=== PATIENT | female | born 1940 | race Caucasian/White ===

== ENCOUNTER 2017-07-28 13:44 | Inpatient (IN) | payer OTHER, MEDICAID ==
[~2017-07-28] VITALS: Ht 157.5 cm; Wt 68.0 kg
[~2017-07-28 13:44] MED LIST: AMIT10TA6 PO; ATEN50TA PO; DEXL30CA3 PO; LEVO100T PO; LOSA50TA3 PO; NEU300 PO; OXCA150T5 PO
[2017-07-28 13:50] VITALS: BP_SYST 185
[2017-07-28] MEDS ORDERED: LEVO88TA2 PO (14:15)
[2017-07-28] MEDS ORDERED: LIP20 PO (14:15)
[2017-07-28] MEDS ORDERED: METO-442 PO (14:15)
[2017-07-28] MEDS ORDERED: NITSL SL (14:15)
[2017-07-28] MEDS ORDERED: PRO40 PO (14:15)
[2017-07-28] MEDS ORDERED: HYDR-1115 PO (14:15)
[2017-07-28] MEDS ORDERED: HYDR25TA4 PO (14:16)
[2017-07-28] MEDS ORDERED: ASPI-1063 PO (14:16)
[2017-07-28 14:20] LABS: BASOPHILS # (AUTO) 0.1 K/uL (0.0-0.2); BASOPHILS % (AUTO) 0.6 % (0.0-2.0); EOSINOPHILS # (AUTO) 0.2 K/uL (0.0-0.4); MONOCYTES # (AUTO) 0.6 K/uL (0.0-1.0); RED CELL DISTRIBUTION WIDTH 13.8 % (9.0-15.0)
[2017-07-28 14:23] LABS: ANION GAP 9 (5-15); CALCIUM 10.1 mg/dL (8.4-11.0); CHLORIDE 100 mmol/L (98-107); GLUCOSE 113 mg/dL (70-99); POTASSIUM 3.6 mmol/L (3.5-5.1); SODIUM SERUM 137 mmol/L (136-145); UREA NITROGEN, BLOOD 11 mg/dL (8-21)
[2017-07-28 14:24] LABS: EOSINOPHILS % (AUTO) 1.9 % (0.0-4.0); HEMOGLOBIN 13.3 g/dL (12.0-16.0); LYMPHOCYTES # (AUTO) 2.4 K/uL (1.0-5.5); MEAN CORPUSCULAR HEMOGLOBIN 27 pg (27-31); MEAN CORPUSCULAR HGB CONC 32 % (32-36); MEAN CORPUSCULAR VOLUME 84 fL (79.0-98.0); MONOCYTES % (AUTO) 6.1 % (1.7-9.3); NEUTROPHILS % (AUTO) 68.4 % (40.0-70.0); WHITE BLOOD COUNT (AUTO) 10.3 K/uL (4.8-10.8)
[2017-07-28 14:27] LABS: PROTHROMBIN TIME 10.4 SECS (9.5-12.5)
[2017-07-28 14:28] LABS: ALANINE AMINOTRANSFERASE 23 U/L (12-78); ALBUMIN 3.8 g/dL (3.4-4.8); ASPARTATE AMINOTRANSFERASE 18 U/L (10-37); TOTAL BILIRUBIN 0.4 mg/dL (0.0-1.0)
[2017-07-28 14:50] LABS: PLATELET COUNT (AUTO) 244 K/uL (130-430)
[2017-07-28 15:53] LABS: BILIRUBIN,URINE NEGATIVE (NEGATIVE); BLOOD, URINE NEGATIVE (NEGATIVE); CLARITY/URINE CLEAR (CLEAR); COLOR,URINE YELLOW (YELLOW); GLUCOSE,URINE NEGATIVE (NEGATIVE); KETONES,URINE NEGATIVE (NEGATIVE); LEUKOCYTE ESTERASE ,URINE TRACE (NEGATIVE); NITRITE, URINE NEGATIVE (NEGATIVE); PROTEIN URINE NEGATIVE (NEGATIVE); UROBILINOGEN,URINE 0.2 (0.2-1.0)
[2017-07-28 16:10] LABS: BACTERIA,URINE FEW /HPF (None Seen); RBC,URINE 0-3 /HPF (0-3)
[2017-07-28 17:45] VITALS: BP_SYST 161
[2017-07-28] MEDS ORDERED: NITROGLYCERIN 0.4 MG TAB.SUBL SL SCH (18:15)
[2017-07-28 18:29] VITALS: BP_SYST 133
[2017-07-28 20:00] VITALS: BP_SYST 113
[2017-07-28] MEDS: METOPROLOL TARTRATE 50 MG TABLET PO SCH (20:08)
[2017-07-28] MEDS ORDERED: ZOLPIDEM TARTRATE 5 MG TABLET PO ONE (22:15)
[2017-07-29] VITALS: BP_SYST 115
[2017-07-29 03:50] LABS: ANION GAP 7 (5-15); CHLORIDE 105 mmol/L (98-107); CREATININE 0.75 mg/dL (0.55-1.30); GLUCOSE 94 mg/dL (70-99); POTASSIUM 3.5 mmol/L (3.5-5.1); SODIUM SERUM 140 mmol/L (136-145); UREA NITROGEN, BLOOD 11 mg/dL (8-21)
[2017-07-29 04:00] VITALS: BP_SYST 135
[2017-07-29 04:06] LABS: ALANINE AMINOTRANSFERASE 21 U/L (12-78); ALBUMIN 3.3 g/dL (3.4-4.8); ASPARTATE AMINOTRANSFERASE 16 U/L (10-37); PHOSPHORUS 3.9 mg/dL (2.7-4.5); THYROID STIMULATING HORMONE 2.38 uIu/mL (0.36-3.74); TOTAL BILIRUBIN 0.5 mg/dL (0.0-1.0)
[2017-07-29] MEDS: LEVOTHYROXINE SODIUM 0.088 MG TABLET PO SCH (06:05)
[2017-07-29 06:18] LABS: BASOPHILS # (AUTO) 0.1 K/uL (0.0-0.2); BASOPHILS % (AUTO) 1.1 % (0.0-2.0); EOSINOPHILS # (AUTO) 0.3 K/uL (0.0-0.4); EOSINOPHILS % (AUTO) 3.7 % (0.0-4.0); HEMOGLOBIN 12.5 g/dL (12.0-16.0); LYMPHOCYTES # (AUTO) 2.4 K/uL (1.0-5.5); LYMPHOCYTES % (AUTO) 32.3 % (20.5-51.5); MEAN CORPUSCULAR HEMOGLOBIN 28 pg (27-31); MEAN CORPUSCULAR HGB CONC 33 % (32-36); MEAN CORPUSCULAR VOLUME 84 fL (79.0-98.0); MONOCYTES # (AUTO) 0.4 K/uL (0.0-1.0); NEUTROPHILS # (AUTO) 4.3 K/uL (1.8-7.7); NEUTROPHILS % (AUTO) 56.9 % (40.0-70.0); PLATELET COUNT (AUTO) 217 K/uL (130-430); RED BLOOD CELL COUNT(AUTO) 4.52 MIL/uL (4.2-6.2); RED CELL DISTRIBUTION WIDTH 14.1 % (9.0-15.0); WHITE BLOOD COUNT (AUTO) 7.5 K/uL (4.8-10.8)
[2017-07-29 08:00] VITALS: BP_SYST 132
[2017-07-29] MEDS: HYDROCHLOROTHIAZIDE 25 MG TABLET (HCTZ) PO SCH (09:36)
[2017-07-29] MEDS: ASPIRIN 81 MG TABLET(ECOTRIN) PO SCH (09:36)
[2017-07-29] MEDS: PANTOPRAZOLE SODIUM 40 MG TAB PO SCH (09:36)
[2017-07-29] MEDS: ATORVASTATIN 20 MG TABLET PO SCH (09:36)
[2017-07-29] MEDS: METOPROLOL TARTRATE 50 MG TABLET PO SCH ×2 (09:37→21:30)
[2017-07-29] MEDS: ACETAMINOPHEN 325 MG TABLET PO PRN ×2 (11:17→17:22)
[2017-07-29 11:36] VITALS: BP_SYST 132
[2017-07-29 15:29] VITALS: BP_SYST 116
[2017-07-29 20:00] VITALS: BP_SYST 130
[2017-07-29] MEDS ORDERED: TEMAZEPAM 15 MG CAPSULE PO ONE (22:15)
[2017-07-30 01:05] VITALS: BP_SYST 117
[2017-07-30 05:29] VITALS: BP_SYST 110
[2017-07-30] MEDS: LEVOTHYROXINE SODIUM 0.088 MG TABLET PO SCH (07:00)
[2017-07-30 08:57] VITALS: BP_SYST 138
[2017-07-30] MEDS ORDERED: REGADENOSON 0.4 MG/5 ML SYRINGE IVP ONE (09:00)
[2017-07-30] MEDS: METOPROLOL TARTRATE 50 MG TABLET PO SCH (11:53)
[2017-07-30] MEDS: HYDROCHLOROTHIAZIDE 25 MG TABLET (HCTZ) PO SCH (11:54)
[2017-07-30] MEDS: PANTOPRAZOLE SODIUM 40 MG TAB PO SCH (11:54)
[2017-07-30] MEDS: ASPIRIN 81 MG TABLET(ECOTRIN) PO SCH (11:54)
[2017-07-30] MEDS: ATORVASTATIN 20 MG TABLET PO SCH (12:00)
[2017-07-30 12:23] VITALS: BP_SYST 114
[2017-07-30 13:30] VITALS: BP_SYST 114
[2017-07-30 13:39] VITALS: BP_SYST 114
== END 2017-07-30 14:04 | disposition home or self-care (01) | DRG 313 ==
LOC: SED 13:44 → STU 17:19
PROVIDERS: ADMIT Internal Medicine Hospice and Palliative Medicine; ATTEND Internal Medicine Hospice and Palliative Medicine
DX: R07.89 Other chest pain (principal); E03.9 Hypothyroidism, unspecified; E78.5 Hyperlipidemia, unspecified; I10 Essential (primary) hypertension; K21.9 Gastro-esophageal reflux disease without esophagitis; Z88.6 Allergy status to analgesic agent; Z88.8 Allergy status to other drugs, medicaments and biological substances; Z79.82 Long term (current) use of aspirin; Z79.899 Other long term (current) drug therapy; Z90.49 Acquired absence of other specified parts of digestive tract; Z90.710 Acquired absence of both cervix and uterus
CPT/HCPCS: 36415; 71010; 80053; 81000-TC; 83690-TC; 83735-TC; 83880; 84100-TC; 84443-TC; 84484; 85025; 85610-TC; 85730-TC; 93005; 93017; 93306; 99285; A9500; J2785

== ENCOUNTER 2018-01-15 09:33 | Inpatient (IN) | payer OTHER, MEDICAID ==
[~2018-01-15] VITALS: Ht 160 cm; Wt 68.9 kg
[2018-01-15 09:33] VITALS: BP_SYST 170
[~2018-01-15 09:33] MED LIST changes: -AMIT10TA6 PO; +ASPI-1063 PO; -ATEN50TA PO; -DEXL30CA3 PO; +HYDR25TA4 PO; -LEVO100T PO; +LEVO88TA2 PO; +LIP20 PO; -LOSA50TA3 PO; +METO-442 PO; -NEU300 PO; +NITSL SL; -OXCA150T5 PO; +PRO40 PO
[2018-01-15] MEDS ORDERED: NS 500 ML IV ONE (10:00)
[2018-01-15 10:09] LABS: BASOPHILS # (AUTO) 0.1 K/uL (0.0-0.2); EOSINOPHILS # (AUTO) 0.2 K/uL (0.0-0.4); EOSINOPHILS % (AUTO) 3.7 % (0.0-4.0); HEMATOCRIT 39.2 % (36-48); LYMPHOCYTES # (AUTO) 0.8 K/uL (1.0-5.5); LYMPHOCYTES % (AUTO) 12.3 % (20.5-51.5); MEAN CORPUSCULAR HEMOGLOBIN 27 pg (27-31); MEAN CORPUSCULAR HGB CONC 33 % (32-36); MEAN CORPUSCULAR VOLUME 82 fL (79.0-98.0); MONOCYTES # (AUTO) 0.5 K/uL (0.0-1.0); NEUTROPHILS # (AUTO) 5.1 K/uL (1.8-7.7); PLATELET COUNT (AUTO) 231 K/uL (130-430); RED BLOOD CELL COUNT(AUTO) 4.77 MIL/uL (4.2-6.2); RED CELL DISTRIBUTION WIDTH 13.7 % (9.0-15.0); WHITE BLOOD COUNT (AUTO) 6.7 K/uL (4.8-10.8)
[2018-01-15 10:25] LABS: BILIRUBIN,URINE NEGATIVE (NEGATIVE); CLARITY/URINE CLEAR (CLEAR); COLOR,URINE YELLOW (YELLOW); GLUCOSE,URINE NEGATIVE (NEGATIVE); KETONES,URINE NEGATIVE (NEGATIVE); LEUKOCYTE ESTERASE ,URINE TRACE (NEGATIVE); NITRITE, URINE NEGATIVE (NEGATIVE); PH,URINE 5.5 (5.0-8.0); PROTEIN URINE NEGATIVE (NEGATIVE); UROBILINOGEN,URINE 0.2 (0.2-1.0)
[2018-01-15 10:27] LABS: BLOOD, URINE TRACE (NEGATIVE)
[2018-01-15 10:32] LABS: ANION GAP 10 (5-15); CALCIUM 9.8 mg/dL (8.4-11.0); CHLORIDE 102 mmol/L (98-107); CREATININE 0.85 mg/dL (0.55-1.30); GLUCOSE 111 mg/dL (70-99); POTASSIUM 3.8 mmol/L (3.5-5.1); SODIUM SERUM 140 mmol/L (136-145); UREA NITROGEN, BLOOD 11 mg/dL (8-21)
[2018-01-15 10:34] LABS: BACTERIA,URINE RARE /HPF (None Seen); MUCUS,URINE None Seen /LPF (None Seen); RBC,URINE 0-3 /HPF (0-3); WBC,URINE 0-3 /HPF (0-3)
[2018-01-15 10:36] LABS: ALANINE AMINOTRANSFERASE 26 U/L (12-78); ALBUMIN 3.5 g/dL (3.4-4.8); ASPARTATE AMINOTRANSFERASE 26 U/L (10-37); TOTAL BILIRUBIN 0.3 mg/dL (0.0-1.0)
[2018-01-15 11:44] VITALS: BP_SYST 168
[2018-01-15] MEDS ORDERED: amLODIPine BESYLATE 5 MG TABLET PO ONE (15:15)
[2018-01-15 16:00] VITALS: BP_SYST 134
[2018-01-15] MEDS ORDERED: PANTOPRAZOLE SODIUM 40 MG TAB PO ONE (18:15)
[2018-01-15 20:51] VITALS: BP_SYST 143
[2018-01-15] MEDS: METOPROLOL TARTRATE 25 MG TABLET PO SCH (21:10)
[2018-01-15] MEDS ORDERED: MORPHINE 4 MG/ML INJ. SYRINGE IVP PRN (21:30)
[2018-01-15] MEDS ORDERED: ACETAMINOPHEN 325 MG TABLET PO PRN (21:30)
[2018-01-15] MEDS ORDERED: ONDANSETRON HCL 4 MG/2 ML VIAL IVP PRN (21:30)
[2018-01-15] MEDS ORDERED: ZOLPIDEM TARTRATE 5 MG TABLET PO PRN (21:30)
[2018-01-15] MEDS ORDERED: MORPHINE 2 MG/ML INJ. SYRINGE IVP PRN (21:30)
[2018-01-16 01:24] VITALS: BP_SYST 146
[2018-01-16] MEDS ORDERED: LEVOTHYROXINE SODIUM 0.088 MG TABLET PO SCH (07:00)
[2018-01-16 08:00] VITALS: BP_SYST 139
[2018-01-16] MEDS: METOPROLOL TARTRATE 25 MG TABLET PO SCH (08:10)
[2018-01-16] MEDS ORDERED: METOPROLOL TARTRATE 50 MG TABLET PO SCH (09:00)
[2018-01-16] MEDS ORDERED: PANTOPRAZOLE SODIUM 40 MG TAB PO SCH ×2 (09:00)
[2018-01-16] MEDS ORDERED: amLODIPine BESYLATE 5 MG TABLET PO SCH (09:00)
[2018-01-16] MEDS ORDERED: ASPIRIN 81 MG TABLET(ECOTRIN) PO SCH (09:00)
[2018-01-16] MEDS ORDERED: MORPHINE 4 MG/ML INJ. SYRINGE IVP PRN (09:32)
[2018-01-16 11:01] VITALS: BP_SYST 135
== END 2018-01-16 11:55 | disposition home or self-care (01) | DRG 313 ==
LOC: SED 09:33 → STU 11:26 → SMU 01-16 10:21
PROVIDERS: ADMIT Internal Medicine Hospice and Palliative Medicine; ATTEND Internal Medicine Hospice and Palliative Medicine
DX: R07.89 Other chest pain (principal); E03.9 Hypothyroidism, unspecified; K44.9 Diaphragmatic hernia without obstruction or gangrene; I10 Essential (primary) hypertension; E78.5 Hyperlipidemia, unspecified; M19.90 Unspecified osteoarthritis, unspecified site; K21.9 Gastro-esophageal reflux disease without esophagitis; Z79.82 Long term (current) use of aspirin; Z88.6 Allergy status to analgesic agent; Z88.8 Allergy status to other drugs, medicaments and biological substances; Z79.899 Other long term (current) drug therapy; Z90.710 Acquired absence of both cervix and uterus; Z90.49 Acquired absence of other specified parts of digestive tract; Z87.891 Personal history of nicotine dependence
CPT/HCPCS: 36415; 71045; 80053; 81000-TC; 83880; 84484; 85025; 93005; 96360; 99285

== ENCOUNTER 2018-02-12 18:20 | Emergency (ER) | payer OTHER, MEDICAID ==
[~2018-02-12] VITALS: Ht 160 cm; Wt 68.9 kg
[~2018-02-12 18:20] MED LIST changes: -HYDR25TA4 PO; -LIP20 PO
[2018-02-12 18:31] VITALS: BP_SYST 176
[2018-02-12 19:48] LABS: BASOPHILS # (AUTO) 0.1 K/uL (0.0-0.2); BASOPHILS % (AUTO) 0.9 % (0.0-2.0); EOSINOPHILS # (AUTO) 0.3 K/uL (0.0-0.4); EOSINOPHILS % (AUTO) 3.6 % (0.0-4.0); HEMATOCRIT 40.6 % (36-48); HEMOGLOBIN 13.4 g/dL (12.0-16.0); LYMPHOCYTES # (AUTO) 2.3 K/uL (1.0-5.5); LYMPHOCYTES % (AUTO) 30.8 % (20.5-51.5); MEAN CORPUSCULAR HEMOGLOBIN 27 pg (27-31); MEAN CORPUSCULAR HGB CONC 33 % (32-36); MEAN CORPUSCULAR VOLUME 82 fL (79.0-98.0); MONOCYTES # (AUTO) 0.4 K/uL (0.0-1.0); NEUTROPHILS # (AUTO) 4.3 K/uL (1.8-7.7); NEUTROPHILS % (AUTO) 58.7 % (40.0-70.0); PLATELET COUNT (AUTO) 289 K/uL (130-430); RED BLOOD CELL COUNT(AUTO) 4.95 MIL/uL (4.2-6.2); RED CELL DISTRIBUTION WIDTH 13.5 % (9.0-15.0); WHITE BLOOD COUNT (AUTO) 7.4 K/uL (4.8-10.8)
[2018-02-12 19:54] LABS: SODIUM SERUM 138 mmol/L (136-145)
[2018-02-12 19:55] LABS: ANION GAP 6 (5-15); CHLORIDE 103 mmol/L (98-107); CREATININE 0.95 mg/dL (0.55-1.30); GLUCOSE 104 mg/dL (70-99); PROTHROMBIN TIME 9.9 SECS (9.5-12.5); UREA NITROGEN, BLOOD 13 mg/dL (8-21)
[2018-02-12 19:57] LABS: ALANINE AMINOTRANSFERASE 35 U/L (12-78); ALBUMIN 3.6 g/dL (3.4-4.8); ASPARTATE AMINOTRANSFERASE 24 U/L (10-37); TOTAL BILIRUBIN 0.3 mg/dL (0.0-1.0)
[2018-02-12 20:19] VITALS: BP_SYST 138
== END 2018-02-12 20:19 | disposition home or self-care (01) ==
LOC: SED 18:20
DX: I16.0 Hypertensive urgency (principal); I10 Essential (primary) hypertension; K21.9 Gastro-esophageal reflux disease without esophagitis; E03.9 Hypothyroidism, unspecified; Z88.5 Allergy status to narcotic agent; Z88.6 Allergy status to analgesic agent; Z79.899 Other long term (current) drug therapy
CPT/HCPCS: 36415; 70450-TC; 71045; 80053; 82550-TC; 84484; 85025; 85610-TC; 85730-TC; 93005; 99285

== ENCOUNTER 2019-03-07 15:11 | Inpatient (IN) | payer MEDICAID, OTHER ==
[~2019-03-07] VITALS: Ht 157.5 cm; Wt 64.0 kg
[~2019-03-07 15:11] MED LIST changes: -ASPI-1063 PO; +ASPI-1153 PO
--- NOTE | 2019-03-07 15:12 | NUR ---
Placed in room 02 . Placed on monitoring engineer, blood pressure machine and pulse oximeter. To gown for exam. Side rails up.
--- NOTE | 2019-03-07 15:15 | NUR ---
Dr Talley at bedside examining patient
--- NOTE | 2019-03-07 15:15 | NUR ---
Patient to ER via triage for evaluation of numbness to left hand/face and elevated BP. BP from triage 212/88. Patient is awake, alert and oriented in no acute distress, respirations even and unlabored, skin warm and dry to touch. Patient on child monitor which shows sinus rhythm without ectopy, patient able to move all extremities, no weakness noted. No drift noted. Dr Talley at bedside to evaluate patient, will continue to observe and assess.
[2019-03-07 15:17] VITALS: BP_SYST 212
--- NOTE | 2019-03-07 15:20 | NUR ---
Pt off the unit for CT
--- NOTE | 2019-03-07 15:30 | NUR ---
Patient returned from CT scan in stable condition. Patient up to bathroom with slow, steady gait.
[2019-03-07 15:59] LABS: BASOPHILS # (AUTO) 0.1 K/uL (0.0-0.2); BASOPHILS % (AUTO) 0.9 % (0.0-2.0); EOSINOPHILS # (AUTO) 0.4 K/uL (0.0-0.4); EOSINOPHILS % (AUTO) 5.5 % (0.0-4.0); HEMATOCRIT 40.5 % (36-48); HEMOGLOBIN 13.4 g/dL (12.0-16.0); LYMPHOCYTES % (AUTO) 29.2 % (20.5-51.5); MEAN CORPUSCULAR HEMOGLOBIN 28 pg (27-31); MEAN CORPUSCULAR HGB CONC 33 % (32-36); MEAN CORPUSCULAR VOLUME 86 fL (79.0-98.0); MONOCYTES # (AUTO) 0.4 K/uL (0.0-1.0); MONOCYTES % (AUTO) 5.9 % (1.7-9.3); NEUTROPHILS % (AUTO) 58.5 % (40.0-70.0); PLATELET COUNT (AUTO) 275 K/uL (130-430); RED BLOOD CELL COUNT(AUTO) 4.72 MIL/uL (4.2-6.2); RED CELL DISTRIBUTION WIDTH 14.9 % (9.0-15.0); WHITE BLOOD COUNT (AUTO) 6.8 K/uL (4.8-10.8)
[2019-03-07 16:04] LABS: ANION GAP 10 (5-15); CALCIUM 9.4 mg/dL (8.4-11.0); CHLORIDE 106 mmol/L (98-107); CREATININE 0.87 mg/dL (0.55-1.30); GLUCOSE 109 mg/dL (70-99); POTASSIUM 3.7 mmol/L (3.5-5.1); SODIUM SERUM 143 mmol/L (136-145); UREA NITROGEN, BLOOD 12 mg/dL (8-21)
[2019-03-07 16:11] LABS: ALANINE AMINOTRANSFERASE 23 U/L (12-78); ALBUMIN 3.3 g/dL (3.4-4.8); ASPARTATE AMINOTRANSFERASE 15 U/L (10-37); TOTAL BILIRUBIN 0.2 mg/dL (0.0-1.0)
--- NOTE | 2019-03-07 16:30 | NUR ---
Patient resting quietly in no acute distress, vital signs stable, respirations even and unlabored, skin warm and dry to touch. Able to ambulate without difficulty with slow, steady gait. No neuro deficits noted. Awaiting dispo, will continue to observe and assess.
[2019-03-07] MEDS ORDERED: LOSA25TA3 PO (16:55)
--- NOTE | 2019-03-07 16:55 | NUR ---
Andres kang in [facility] - 03/07/19 at 1656 by [email or web address] Medication reconciliation completed with information provided by patient. Any prior medication reconciliation on file was reviewed and corrected.
--- NOTE | 2019-03-07 16:55 | NUR ---
Medication reconciliation completed with information provided by patient . Any prior medication reconciliation on file was reviewed and corrected.
[2019-03-07] MEDS ORDERED: ASPIRIN 81 MG TAB.CHEW PO ONE (17:00)
[2019-03-07] MEDS ORDERED: NITROGLYCERIN 0.4 MG TAB.SUBL SL PRN (17:15)
[2019-03-07] MEDS ORDERED: MORPHINE 2 MG/ML INJ. SYRINGE IVP PRN (17:15)
--- NOTE | 2019-03-07 17:15 | NUR ---
Patient will be admitted to care of Dr Hawley. Admitted to tele unit. Will go to room 101-B. Belongings list completed. Summary report printed. Report will be given at bedside.
--- NOTE | 2019-03-07 17:23 | NUR ---
Transfer to tele room 101-B via ACLS protocol. Licensed nurse present. IV present no signs or symptoms of infiltration.
[2019-03-07 17:52] LABS: BILIRUBIN,URINE NEGATIVE (NEGATIVE); BLOOD, URINE NEGATIVE (NEGATIVE); CLARITY/URINE CLEAR (CLEAR); GLUCOSE,URINE NEGATIVE (NEGATIVE); KETONES,URINE NEGATIVE (NEGATIVE); LEUKOCYTE ESTERASE ,URINE NEGATIVE (NEGATIVE); NITRITE, URINE NEGATIVE (NEGATIVE); PROTEIN URINE NEGATIVE (NEGATIVE); UROBILINOGEN,URINE 0.2 (0.2-1.0)
--- NOTE | 2019-03-07 17:58 | NUR ---
Admission Note Received patient from ER with diagnosis of Chest pain. Initial Plan of Care discussed-patient verbalized understanding. Family at bedside. Oriented to room, call light, pain management and safety.
[2019-03-07 18:01] LABS: COLOR,URINE STRAW (YELLOW)
[2019-03-07 18:18] VITALS: BP_SYST 171
--- NOTE | 2019-03-07 18:19 | NUR ---
patient in bed. aaox 4. lungs bilaterally clear. abdomen soft and non distended. has iv access on the left ac #20. dry/patent. verbalized very hungry. has dinner tray on the table. assists on adls. placed on alarm security or surveillance monitor SR 80"s. no ectopy noted. no chest pain nor acute distress noted. bed in low position. call lights within reach. instructed to call for assistance.
--- NOTE | 2019-03-07 18:57 | NUR ---
patient stable but complained 3-4 chest pressure, but offered to have nitroglycerin sublingual verbalized not yet, perhaps later and offered to have morphine iv but refused perhaps later in the nite before I slept. wants to call first the children. call lights within reach. bed in low position.
--- NOTE | 2019-03-07 18:58 | NUR ---
CONSULTATION PAGED/CALLED Reason for Consultation: CHEST PAIN Person Who was Notified: L[place]IS Consulting Physician: DR. ANDERSON Waffle Machine Operator Specialty: CARDIO Ordering Physician: YULIA PELAEZ
--- NOTE | 2019-03-07 19:00 | NUR ---
latest bp is 156/92. patient stable.
--- NOTE | 2019-03-07 19:23 | NUR ---
endorsed to incoming nurse Jefe PEREZ.
[2019-03-07 19:45] VITALS: BP_SYST 139
--- NOTE | 2019-03-07 19:45 | NUR ---
INITIAL NOTE AT INITIAL ASSESSMENT, PATIENT IS RESTING IN BED, STABLE, NO SIGNS OF RESPIRATORY DISTRESS. PATIENT VERBALIZES NO PAIN. PLAN OF CARE FOR THE EVENING IS COMMUNICATED WITH THE PATIENT. CALL LIGHT- TEACH BACK IS SUCCESSFUL. BED IS LOCKED, ALARMED, AND AT THE LOWEST LEVEL. FALL, AND SAFETY PRECAUTIONS WILL BE IN PLACE THROUGHOUT THE SHIFT.
[2019-03-07] MEDS ORDERED: METOPROLOL TARTRATE 25 MG TABLET PO SCH (21:00)
[2019-03-07] MEDS: METOPROLOL TARTRATE 50 MG TABLET PO SCH (21:15)
[2019-03-07] MEDS: LOSARTAN POTASSIUM 25 MG TABLET PO SCH (21:15)
--- NOTE | 2019-03-07 21:45 | NUR ---
NOTE PRN MEDICATION FOR PATIENT'S PAIN COMPLAIN HAS BEEN GIVEN AT THIS TIME. PATIENT IS RESTING IN BED, STABLE, NO SIGNS OF RESPIRATORY DISTRESS. CALL LIGHT IS WITHIN REACH. BED IS LOCKED, ALARMED, AND AT THE LOWEST LEVEL.
[2019-03-07 23:10] VITALS: BP_SYST 139
--- NOTE | 2019-03-07 23:45 | NUR ---
NOTE PATIENT VERBALIZES PRN MEDICATION GIVEN FOR HER PAIN WAS EFFECTIVE. PATIENT ASSISTED TO THE RESTROOM WITH ONLY STAND BY ASSIST AT THIS TIME, SHE IS VISUALIZED WITH STEADY GAIT. PATIENT IS STABLE, NO SIGNS OF RESPIRATORY DISTRESS. CALL LIGHT IS WITHIN REACH. BED IS LOCKED, ALARMED, AND AT THE LOWEST LEVEL.
--- NOTE | 2019-03-08 01:45 | NUR ---
NOTE PATIENT IS SLEEPING, STABLE, NO SIGNS OF RESPIRATORY DISTRESS. CALL LIGHT IS WITHIN REACH. BED IS LOCKED, ALARMED, AND AT THE LOWEST LEVEL.
--- NOTE | 2019-03-08 03:45 | NUR ---
NOTE PATIENT IS SLEEPING, STABLE, NO SIGNS OF RESPIRATORY DISTRESS. CALL LIGHT IS WITHIN REACH. BED IS LOCKED, ALARMED, AND AT THE LOWEST LEVEL.
--- NOTE | 2019-03-08 05:30 | NUR ---
NOTE PATIENT IS SLEEPING, STABLE, NO SIGNS OF RESPIRATORY DISTRESS. CALL LIGHT IS WITHIN REACH. BED IS LOCKED, ALARMED, AND AT THE LOWEST LEVEL.
[2019-03-08] MEDS: LEVOTHYROXINE SODIUM 0.088 MG TABLET PO SCH (06:28)
--- NOTE | 2019-03-08 06:43 | NUR ---
CLOSING NOTE AT THIS TIME, PATIENT IS RESTING IN BED, STABLE, NO SIGNS OF RESPIRATORY DISTRESS. PATIENT SLEPT WELL THROUGHOUT THE SHIFT. BED IS LOCKED, ALARMED, AND THE LOWEST LEVEL. FALL, AND SAFETY PRECAUTIONS HAVE BEEN TAKEN THROUGHOUT THE SHIFT. WILL CONTINUE TO MONITOR UNTIL SHIFT REPORT IS GIVEN AT BEDSIDE TO AM NURSE.
[2019-03-08 07:12] LABS: BASOPHILS # (AUTO) 0.1 K/uL (0.0-0.2); EOSINOPHILS # (AUTO) 0.4 K/uL (0.0-0.4); EOSINOPHILS % (AUTO) 6.6 % (0.0-4.0); HEMATOCRIT 38.1 % (36-48); HEMOGLOBIN 12.4 g/dL (12.0-16.0); LYMPHOCYTES # (AUTO) 2.2 K/uL (1.0-5.5); MEAN CORPUSCULAR HEMOGLOBIN 28 pg (27-31); MEAN CORPUSCULAR HGB CONC 33 % (32-36); MEAN CORPUSCULAR VOLUME 85 fL (79.0-98.0); MONOCYTES # (AUTO) 0.4 K/uL (0.0-1.0); MONOCYTES % (AUTO) 6.7 % (1.7-9.3); NEUTROPHILS # (AUTO) 3.2 K/uL (1.8-7.7); NEUTROPHILS % (AUTO) 50.7 % (40.0-70.0); PLATELET COUNT (AUTO) 248 K/uL (130-430); RED BLOOD CELL COUNT(AUTO) 4.48 MIL/uL (4.2-6.2); RED CELL DISTRIBUTION WIDTH 14.9 % (9.0-15.0); WHITE BLOOD COUNT (AUTO) 6.3 K/uL (4.8-10.8)
[2019-03-08 07:21] LABS: ANION GAP 8 (5-15); CALCIUM 8.7 mg/dL (8.4-11.0); CHLORIDE 108 mmol/L (98-107); CREATININE 0.72 mg/dL (0.55-1.30); GLUCOSE 82 mg/dL (70-99); POTASSIUM 3.9 mmol/L (3.5-5.1); SODIUM SERUM 142 mmol/L (136-145); UREA NITROGEN, BLOOD 13 mg/dL (8-21)
[2019-03-08 07:25] LABS: ALANINE AMINOTRANSFERASE 17 U/L (12-78); ALBUMIN 2.8 g/dL (3.4-4.8); ASPARTATE AMINOTRANSFERASE 12 U/L (10-37); TOTAL BILIRUBIN 0.3 mg/dL (0.0-1.0)
[2019-03-08 08:00] VITALS: BP_SYST 134
--- NOTE | 2019-03-08 08:00 | NUR ---
initial notes rec patient awake laert and eating breakfast. denies chest pain. resp easy and unlabored. no noted. ambulated to the br and mook well. resp easy and unlabored. no sob noted. bed to the lowest position and side rails up and locked. call light within reached and knows when to call for assists. bed alarm is activated.
[2019-03-08] MEDS ORDERED: ASPIRIN 81 MG TAB.CHEW PO SCH (09:00)
[2019-03-08] MEDS: ENOXAPARIN SODIUM 40 MG/0.4 ML SYRINGE SUBCUT SCH (09:13)
[2019-03-08] MEDS: ASPIRIN 81 MG TABLET(ECOTRIN) PO SCH (09:13)
[2019-03-08] MEDS: LOSARTAN POTASSIUM 25 MG TABLET PO SCH ×2 (09:14→20:41)
[2019-03-08] MEDS: METOPROLOL TARTRATE 50 MG TABLET PO SCH ×2 (09:14→20:40)
--- NOTE | 2019-03-08 10:00 | NUR ---
rounds due meds were given and mook well. assisted to the br and mook well. nos ob noted.. call light within reached.
[2019-03-08] MEDS ORDERED: ATORVASTATIN 20 MG TABLET PO ONE (10:45)
[2019-03-08 11:10] VITALS: BP_SYST 109
--- NOTE | 2019-03-08 12:00 | NUR ---
rounds seen by dr chance and with order for stress test in am 0930. instructed to be npo post midnight and no beta blockers as per solar sales associate.
--- NOTE | 2019-03-08 14:00 | NUR ---
rounds sleep or watching tv at intervals. denies chest pain.
[2019-03-08 15:19] VITALS: BP_SYST 140
[2019-03-08 19:20] VITALS: BP_SYST 132
--- NOTE | 2019-03-08 19:20 | NUR ---
OPENING NOTE RECEIVED ENDORSEMENT REPORT FROM DAY NURSE JAYCE AT BEDSIDE. PT IS AOX4. NO SOB NOTED. NO DISTRESS NOTED. CHEST RISE EVEN AND UNLABORED. NO S/S OF PAIN NOTED. PT DENIES PAIN AT THIS TIME. IV CLEAN, DRY, PATENT AND INTACT. ORIENTED PT TO HOSPITAL ROOM AND HOW TO USE ROOM PHONE AND CALL LIGHT TO CALL FOR ASSISTANCE. PT VERBALIZED UNDERSTANDING. SAFETY MEASURES IN PLACE. CALL LIGHT/ROOM PHONE WITHIN REACH, BED ALARM ON, BED WHEELS LOCKED, BED IN LOWEST POSITION, BED WHEELS LOCKED, SIDE RAILS UP X3, BEDSIDE TABLE WITHIN REACH. NO OTHER NEEDS AT THIS TIME. WILL CONTINUE TO MONITOR PT AND CONTINUE PT'S POC.
--- NOTE | 2019-03-08 20:40 | NUR ---
RN ROUNDS PT RESTING IN BED. NO SOB NOTED. NO DISTRESS NOTED. CHEST RISE EVEN AND UNLABORED. NO S/S OF PAIN NOTED. PT DENIES PAIN AT THIS TIME. VITAL SIGNS WNL. SCHEDULED MEDICATIONS ADMINISTERED ORDERED. NO OTHER NEEDS AT THIS TIME. SAFETY MEASURES IN PLACE. WILL CONTINUE TO MONITOR PT AND CONTINUE PT'S POC.
[2019-03-08] MEDS: FAMOTIDINE 20 MG TABLET PO SCH (20:41)
--- NOTE | 2019-03-08 21:05 | NUR ---
PAGED I PAGED DR. 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 YULIA HERNANDEZ I SPOKE WITH FLORENCE ENVIRONMENTAL ENGINEER SCIENTIST
[2019-03-08] MEDS ORDERED: ACETAMINOPHEN 325 MG TABLET PO PRN (21:30)
--- NOTE | 2019-03-08 22:45 | NUR ---
RN ROUNDS PT RESTING IN BED WITH EYES CLOSED. NO SOB NOTED. NO DISTRESS NOTED. CHEST RISE EVEN AND UNLABORED. NO S/S OF PAIN NOTED. NO OTHER NEEDS AT THIS TIME. SAFETY MEASURES IN PLACE. WILL CONTINUE TO MONITOR PT AND CONTINUE PT'S POC.
[2019-03-09] VITALS: BP_SYST 125
--- NOTE | 2019-03-09 04:25 | NUR ---
RN ROUNDS PT RESTING IN BED. NO SOB NOTED. NO DISTRESS NOTED. CHEST RISE EVEN AND UNLABORED. NO S/S OF PAIN NOTED. PT DENIES PAIN AT THIS TIME. VITAL SIGNS WNL. SAFETY MEASURES IN PLACE. NO OTHER NEEDS AT THIS TIME. WILL CONTINUE TO MONITOR PT AND CONTINUE PT'S POC.
--- NOTE | 2019-03-09 06:37 | NUR ---
CLOSING NOTE PT RESTING IN BED WITH EYES CLOSED. NO SOB NOTED. NO DISTRESS NOTED. CHEST RISE EVEN AND UNLABORED. NO S/S OF PAIN NOTED. PT DENIES PAIN AT THIS TIME. IV CLEAN, DRY, PATENT AND INTACT. NO COMPLAINTS OF PAIN THROUGHOUT SHIFT. ALL NEEDS MET THROUGHOUT SHIFT. ALL SCHEDULED MEDICATIONS ADMINISTERED ORDERED. SAFETY MEASURES IN PLACE THROUGHOUT SHIFT. NO OTHER NEEDS AT THIS TIME. WILL ENDORSE PT REPORT TO DAY NURSE.
--- NOTE | 2019-03-09 06:50 | NUR ---
[facility] CALLED JASMEET CALLED TO NOTIFY SHE WILL BE ARRIVING BETWEEN [phone] TO COME AND EXPLAIN EVERYTHING TO PT. PT TO CONTINUE TO BE NPO
[2019-03-09] MEDS: LEVOTHYROXINE SODIUM 0.088 MG TABLET PO SCH (06:53)
[2019-03-09 07:44] VITALS: BP_SYST 143
--- NOTE | 2019-03-09 07:45 | NUR ---
INITIAL NOTE RECEIVED PT IN BED, NO S/S OF DISTRESS OR SOB NOTED, PT HAS NO C/O PAIN AT THIS TIME, PT IN STABLE CONDITION, PT AAOX4, VERBAL, IV CATHETER PATENT, NO SIGNS OF INFECTION OR INFILTRATION NOTED. PT HAS NO C/O CHEST PAIN AT THIS TIME. BED AT LOWEST POSITION, CALL LIGHT WITHIN REACH, WILL CONTINUE TO MONITOR PT FOR ANY CHANGES, FALL AND SAFETY PRECAUTIONS IN PLACE. PT NPO FOR STRESS TEST THIS AM.
--- NOTE | 2019-03-09 08:30 | NUR ---
MD ROUNDS DR AIDAN QUINONES, AWARE OF PATIENT'S CONDITION.
--- NOTE | 2019-03-09 08:40 | NUR ---
STRESS TEST PT LEFT UNIT FOR STRESS TEST, PT IN STABLE CONDITION, IV CATHETER PATENT, NO SIGNS OF INFECTION OR INFILTRATION NOTED.
[2019-03-09] MEDS ORDERED: ATORVASTATIN 20 MG TABLET PO SCH (09:00)
[2019-03-09] MEDS ORDERED: REGADENOSON 0.4 MG/5 ML SYRINGE IVP ONE (09:30)
[2019-03-09] MEDS: FAMOTIDINE 20 MG TABLET PO SCH (09:59)
[2019-03-09] MEDS: LOSARTAN POTASSIUM 25 MG TABLET PO SCH (09:59)
[2019-03-09] MEDS: METOPROLOL TARTRATE 50 MG TABLET PO SCH (09:59)
[2019-03-09] MEDS: ASPIRIN 81 MG TABLET(ECOTRIN) PO SCH (09:59)
--- NOTE | 2019-03-09 10:00 | NUR ---
BACK FROM STRESS TEST PT IN STABLE CONDITION, NO S/S OF DISTRESS OR SOB NOTED, PT HAS NO C/O PAIN AT THIS TIME, PT IN STABLE CONDITION. WILL CONTINUE TO MONITOR PT FOR ANY CHANGES.
[2019-03-09] MEDS: ENOXAPARIN SODIUM 40 MG/0.4 ML SYRINGE SUBCUT SCH (10:04)
[2019-03-09 12:00] VITALS: BP_SYST 140
--- NOTE | 2019-03-09 12:10 | NUR ---
ROUNDS PT IN BED, NO S/S OF DISTRESS OR SOB NOTED, PT HAS NO C/O PAIN AT THIS TIME, PT IN STABLE CONDITION, PT RESTING COMFORTABLY, WILL CONTINUE TO MONITOR PT FOR ANY CHANGES.
[2019-03-09 13:48] VITALS: BP_SYST 127
--- NOTE | 2019-03-09 14:03 | NUR ---
MD CALL DR AIDAN LEE. AWAITING CALL BACK FOR MEDICATION RECONCILIATION ORDERS.
[2019-03-09 14:52] VITALS: BP_SYST 127
--- NOTE | 2019-03-22 15:29 | NUR ---
DISCHARGE FOLLOW UP CALL: BIKE SHOP MANAGER phoned pt. Per pt she is doing well. Pt stated her blood pressure at times goes up and sometimes does not feel well due to it, BIKE SHOP MANAGER encouraged pt to call MD to discuss HPN or bring self to closest ED to be assessed. Pt stated sometimes she has anxiety. BIKE SHOP MANAGER educated pt regarding some relaxing techniques that might help with anxiety. Per pt she has an appointment with PCP, Dr. Steve on 04/01 and she will bring self to MD appointment. No further SS call needed at this time.
== END 2019-03-09 15:20 | disposition home or self-care (01) | DRG 392 ==
LOC: SED 15:11 → STU 17:15
PROVIDERS: ADMIT Internal Medicine; ATTEND Internal Medicine
DX: K21.9 Gastro-esophageal reflux disease without esophagitis (principal); I10 Essential (primary) hypertension; E03.9 Hypothyroidism, unspecified; I25.10 Atherosclerotic heart disease of native coronary artery without angina pectoris; G89.29 Other chronic pain; R10.13 Epigastric pain; Z88.6 Allergy status to analgesic agent; Z88.8 Allergy status to other drugs, medicaments and biological substances; Z79.82 Long term (current) use of aspirin; Z79.899 Other long term (current) drug therapy
CPT/HCPCS: 36415; 70450-TC; 71045; 80053; 81003; 82550-TC; 83880; 84484; 85025; 93005; 93017; 93306; 99285; A9500; G0378; J1650; J2270; J2785